=== PATIENT | male | born 1955 | race Caucasian/White ===

== ENCOUNTER → 2023-08-16 17:15 | Outpatient (REF) | payer OTHER, SELFPAY | LOC: MRI 3T 17:15 | PROVIDERS: ATTENDING PHYSICIAN Specialist; FAMILY PHYSICIAN Internal Medicine Geriatric Medicine | DX: C61 Malignant neoplasm of prostate (principal) | CPT/HCPCS: 72197; A9575 ==

== ENCOUNTER 2023-10-09 14:54 | Outpatient (RCR) | payer OTHER, SELFPAY | END 2023-10-09 23:59 | disposition home or self-care (01) | LOC: RPT 14:54 | PROVIDERS: ATTENDING PHYSICIAN Specialist; FAMILY PHYSICIAN Internal Medicine Geriatric Medicine | DX: C61 Malignant neoplasm of prostate (principal) | CPT/HCPCS: 97162; 97530 ==

== ENCOUNTER 2023-10-10 06:11 | Inpatient (IN) | payer OTHER, SELFPAY ==
[2023-10-02 08:07] VITALS: BMI 26.3
[2023-10-02 08:58] LABS: Hematocrit 38.7 % (39.0-52.0); Hemoglobin 13.6 g/dL (13.0-18.0); Mean Corp Hgb Conc. 35.1 g/dL (33.0-37.0); Mean Corpuscular Hgb 32.2 pg (27.0-31.0); Mean Corpuscular Volume 91.5 fL (80.0-94.0); Mean Platelet Volume 10.4 fL (7.4-10.4); Platelet Count 179 10^3/uL (130-400); Red Blood Cell Count 4.23 10^6/uL (4.70-6.10); Red Cell Dist. Width 12.3 % (11.5-14.5); White Blood Cell Count 5.2 10^3/uL (4.8-10.8)
[2023-10-02 09:10] LABS: Urine Albumin Negative (Neg - Trace); Urine Bilirubin Negative (Negative); Urine Character Clear (Clear); Urine Color Yellow; Urine Glucose Negative (Negative); Urine Ketone Negative (Negative); Urine Leukocyte Negative (Negative); Urine Nitrite Negative (Negative); Urine Occult Blood Negative (Negative); Urine Specific Gravity 1.015 (<1.030); Urine Urobilinogen Negative (Neg - 1+)
[2023-10-02 09:13] LABS: APTT 26.5 Sec (23.4-35.0); INR 1.05; PT 13.8 Sec (11.4-14.6)
[2023-10-02 10:14] LABS: Blood Urea Nitrogen 24 mg/dl (9-20); Calcium 9.5 mg/dl (8.4-10.2); Carbon Dioxide 25 mmol/L (22-30); Chloride 104 mmol/L (98-107); Estimated Creatinine Clearance 79 ml/min; Glucose 84 mg/dl (70-99); Potassium 4.6 mmol/L (3.5-5.1); Sodium 136 mmol/L (135-145); eGFR > 60.00
[2023-10-10] VITALS (14 sets, daily range): BP systolic 116–164; BP diastolic 65–89; BMI 26.3
[2023-10-10] MEDS: NORMOSOL-R 1000 IV (06:40)
[2023-10-10] MEDS: NEOMYCIN ENEMA 1 BOTTLE RECTAL (06:51)
--- NOTE | 2023-10-10 09:18 | W.PN.ADMIT ---
Progress Note - Admit
Progress Note - Admit
pt underwent uneventful RPP
admit for post op management
[2023-10-10] MEDS: NSS 1000 IV ×2 (10:02→21:03)
[2023-10-10 10:34] LABS: Hematocrit 38.3 % (39.0-52.0); Hemoglobin 13.4 g/dL (13.0-18.0); Mean Corpuscular Volume 91.4 fL (80.0-94.0); Mean Platelet Volume 10.3 fL (7.4-10.4); Platelet Count 168 10^3/uL (130-400); Red Blood Cell Count 4.19 10^6/uL (4.70-6.10); Red Cell Dist. Width 12.2 % (11.5-14.5); White Blood Cell Count 10.2 10^3/uL (4.8-10.8)
[2023-10-10] MEDS: DILAUDID 0.5 MG IV (10:38)
[2023-10-10 12:29] LABS: Blood Urea Nitrogen 11 mg/dl (9-20); Calcium 8.8 mg/dl (8.4-10.2); Carbon Dioxide 25 mmol/L (22-30); Chloride 105 mmol/L (98-107); Estimated Creatinine Clearance 88 ml/min; Glucose 134 mg/dl (70-99); Sodium 137 mmol/L (135-145); eGFR > 60.00
[2023-10-10] MEDS: DETROL LA 4 MG PO (12:50)
[2023-10-10] MEDS: TORADOL 15 MG IV ×2 (12:50→21:04)
[2023-10-10] MEDS: COLACE 100 MG PO (21:03)
[2023-10-11 03:00] VITALS: BP 122/60
[2023-10-11] MEDS: TORADOL 15 MG IV ×3 (04:33→20:51)
[2023-10-11 06:48] LABS: Hematocrit 33.5 % (39.0-52.0); Hemoglobin 11.8 g/dL (13.0-18.0); Mean Corp Hgb Conc. 35.2 g/dL (33.0-37.0); Mean Corpuscular Hgb 32.6 pg (27.0-31.0); Mean Corpuscular Volume 92.5 fL (80.0-94.0); Mean Platelet Volume 10.6 fL (7.4-10.4); Platelet Count 149 10^3/uL (130-400); Red Blood Cell Count 3.62 10^6/uL (4.70-6.10); Red Cell Dist. Width 12.1 % (11.5-14.5); White Blood Cell Count 9.4 10^3/uL (4.8-10.8)
[2023-10-11 07:12] LABS: Blood Urea Nitrogen 10 mg/dl (9-20); Calcium 8.7 mg/dl (8.4-10.2); Carbon Dioxide 25 mmol/L (22-30); Chloride 106 mmol/L (98-107); Estimated Creatinine Clearance 88 ml/min; Glucose 92 mg/dl (70-99); Potassium 4.7 mmol/L (3.5-5.1); Sodium 136 mmol/L (135-145); eGFR > 60.00
[2023-10-11 07:27] VITALS: BP 121/70
--- NOTE | 2023-10-11 08:06 | W.PN.URO.CBU ---
Today's Communication / Plan
-
routine post prostaectomy care
Assessment / Plan
-
s/p RPP
dressing down
UOOB
advance diet
Diagnosis
-
Date of Service: October 11, 2023
-
Patient Diagnosis:
prostate cancer
Post Op Day:
RPP 10/09
Subjective
-
pt feeling well
urine clear
minimal wound drainage
+ flatus
Objective
-
Vital Signs
Temp Pulse Resp BP Pulse Ox
98.1 F 74 18 121/70 96
10/11/23 07:27 10/11/23 07:27 10/11/23 07:27 10/11/23 07:27 10/11/23 07:27
Intake and Output
10/10/23 10/11/23 10/12/23
06:59 06:59 06:59
Intake Total 3360 / 3360
Output Total 1340 / 1340
Balance 2019 / 2020
Intake:
Oral fluids 2160 / 2160
IV fluids (Total) 1200 / 1200
normosol 200 / 200
Output:
Urine, Perez 1340 / 1340
Laboratory Results
10/11/23 05:51
10/11/23 05:51
Review of Systems
-
Constitutional: No Symptoms
Respiratory: No Symptoms
Cardiac: No Symptoms
Abdomen/GI: No Symptoms
Physical Exam
-
General - well developed, well nourished, no acute distress
Abdomen - soft, non-tender,
Genitalia - normal- perez in place
Rectal - normal
Skin - warm & dry with no rash
Neuro - AOx3, no motor deficits
Extremities - no clubbing, no cyanosis, no edema
Incision - clean, dry- dressing removed
[2023-10-11] MEDS: VITAMIN D3 (cholecalciferol) 25 MCG PO (09:15)
[2023-10-11] MEDS: DETROL LA 4 MG PO (09:15)
[2023-10-11] MEDS: COLACE 100 MG PO (09:15)
[2023-10-11] MEDS: TYLENOL 650 MG PO (09:16)
[2023-10-11] MEDS: STERILE WATER FOR INJECTION 10 ML IV (09:16)
[2023-10-11] MEDS: ROCEPHIN 1000 MG IV (09:16)
--- NOTE | 2023-10-11 11:39 | CM ---
Addendum entered by Meño Denton 10/11/23 14:24:
Patient and would like referral sent to [facility] for VN services. Referral sent via standard fax. [facility] unavailable. Sushma at [facility] notified.
Original Note:
Initial assessment completed with patient who lives with his in a 2 story carriage house with B/B on 1st floor, no steps to enter, DME in home is [facility] and [facility], patient does not use any DME, no in-home services. RELATIONS MGR patient was independent,
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 No history of Psychiatric hospitalizations. Pharmacy is [facility] on [address] in [place] and PCP is Dr. Louis Bey. Will need services for Cole and wound care. Patient
requests CM meet with this afternoon to choose HH agency.
[2023-10-11] MEDS: NSS IV (14:53)
[2023-10-11 15:33] VITALS: BP 117/58
[2023-10-11] MEDS: COLACE PO (20:40)
[2023-10-11 23:00] VITALS: BP 125/68
[2023-10-12] MEDS: TORADOL 15 MG IV (03:30)
[2023-10-12 07:55] VITALS: BP 135/70
[2023-10-12] MEDS: DETROL LA 4 MG PO (09:14)
[2023-10-12] MEDS: VITAMIN D3 (cholecalciferol) 25 MCG PO (09:16)
[2023-10-12] MEDS: STERILE WATER FOR INJECTION 10 ML IV (09:17)
[2023-10-12] MEDS: ROCEPHIN 1000 MG IV (09:17)
[2023-10-12] MEDS: COLACE PO (09:23)
[2023-10-12] MEDS: TYLENOL 650 MG PO (09:25)
--- NOTE | 2023-10-12 10:43 | W.PN.URO.CBU ---
Today's Communication / Plan
-
Discharge
Assessment / Plan
-
68M s/p RPP
dressing exchanged and mariya drain removed
UOOB
regular diet
PO pain control
Stable for discharge home today with perez in place
Diagnosis
-
Date of Service: October 12, 2023
-
Patient Diagnosis:
Prostate cancer
Post Op Day:
Patient Diagnosis:
prostate cancer
Post Op Day:
RPP 10/09
Subjective
-
feeling well with pain controlled
tolerating diet
ambulated
BM this AM
mariya drain fell out during hygiene
Objective
-
Vital Signs
Temp Pulse Resp BP Pulse Ox
96.4 F L 71 16 135/70 96
10/12/23 07:55 10/12/23 07:55 10/12/23 07:55 10/12/23 07:55 10/12/23 07:55
Intake and Output
10/11/23 10/12/23 10/13/23
06:59 06:59 06:59
Intake Total 3360 / 3360 2280 / 2280 240 / 240
Output Total 1340 / 1340 4595 / 6335 425 / 425
Balance 2020 / 2020 -4055 / -4055 -185 / -185
Intake:
Oral fluids 2160 / 2160 2280 / 2280 240 / 240
IV fluids (Total) 1200 / 1200
normosol 200 / 200
Output:
Urine, Perez 1340 / 1340 6335 / 6335 425 / 425
Laboratory Results
10/11/23 05:51
10/11/23 05:51
Physical Exam
-
General - well developed, well nourished, no acute distress
Chest - clear bilaterally
Abdomen - soft, non-tender
- perez in place, clear urine
Skin - warm & dry with no rash
Neuro - AOx3, no motor deficits
Extremities - no clubbing, no cyanosis, no edema
Incision - clean, dry
Dressing - clean, dry, intact
--- NOTE | 2023-10-12 10:45 | W.DS.TRANS ---
DC Summary - [employer]
-
Discharge Instructions:
Sleep Apnea Risk Low
Discharge Diagnosis/Procedures you had a radical perineal prostatectomy
Diet No restrictions
Activity No strenuous activity
Additional Activity no lifting over 10lbs
Driving Restrictions Not until seen by your Dr
Bathing Restrictions shower after each bowel movement
Other Services VN
Wound Care expect drainage from wound
expect some blood in urine and around catheter
Instructions:
Stand-Alone Forms:
Changes to Home Medications: No
Discharge Medications:
DC Medications w/original date entered in [employer]
cholecalciferol (vitamin D3) 25 mcg (1,000 unit) capsule (Vitamin D3) 25 mcg PO DAILY Supplement 10/08/23
sildenafil 100 mg tablet 100 mg PO DAILY PRN erectile 10/08/23
docusate sodium 100 mg capsule (Colace) 100 mg PO BID #60 caps 10/11/23
naproxen sodium 220 mg capsule (Aleve) 220 mg PO BID #30 caps 10/11/23
nitrofurantoin monohydrate/macrocrystals 100 mg capsule (Macrobid) 100 mg PO QHS #14 caps 10/11/23
tramadol 50 mg tablet 50 mg PO Q8H PRN Pain #30 tabs 10/11/23
Home Medication Changes
Pending Results: Yes (Pathology)
Total time spent discharging patient (in min): 35
--- NOTE | 2023-10-12 11:27 | CM ---
Patient has been medically cleared for discharge to home with [facility] services. [facility] FAX # [phone]. Patient has arranged for transport home.
[2023-10-12 12:35] VITALS: BP 143/81
== END 2023-10-12 12:36 | disposition home health service (06) | DRG 708 ==
LOC: 2 SOUTH 06:11
PROVIDERS: ADMITTING PHYSICIAN Specialist; FAMILY PHYSICIAN Internal Medicine Geriatric Medicine
PROC: 0VT00ZZ Resection of Prostate, Open Approach (ICD-10-PCS; 2023-10-10)
PROC: 0VT30ZZ Resection of Bilateral Seminal Vesicles, Open Approach (ICD-10-PCS; 2023-10-10)
PROC: 0TQC0ZZ Repair Bladder Neck, Open Approach (ICD-10-PCS; 2023-10-10)
DX: C61 Malignant neoplasm of prostate (principal)
CPT/HCPCS: 88305; 88309; 36415; 80048; 81003; 85027; 85610; 85730; 86850; 86900; 86901; 93005; A4648

== ENCOUNTER 2023-11-26 06:17 | Day surgery (SDC) | payer OTHER, SELFPAY ==
[2023-11-26] VITALS (7 sets, daily range): BP systolic 119–159; BP diastolic 61–81; BMI 25.7
== END 2023-11-26 10:50 | disposition home or self-care (01) ==
LOC: SDS 06:17
PROVIDERS: ATTENDING PHYSICIAN Specialist
DX: N35.919 Unspecified urethral stricture, male, unspecified site (principal); C61 Malignant neoplasm of prostate
CPT/HCPCS: 52281; 76000; J1580

== ENCOUNTER 2023-12-16 15:02 | Outpatient (RCR) | payer OTHER, SELFPAY | END 2023-12-16 23:59 | disposition home or self-care (01) | LOC: RPT 15:02 | PROVIDERS: ATTENDING PHYSICIAN Specialist; FAMILY PHYSICIAN Internal Medicine Geriatric Medicine | DX: C61 Malignant neoplasm of prostate (principal); Z73.6 Limitation of activities due to disability | CPT/HCPCS: 97110; 97164; 97530 ==

== ENCOUNTER 2023-12-30 14:54 | Outpatient (RCR) | payer OTHER, SELFPAY | END 2023-12-30 23:59 | disposition home or self-care (01) | LOC: RPT 14:54 | PROVIDERS: ATTENDING PHYSICIAN Specialist; FAMILY PHYSICIAN Internal Medicine Geriatric Medicine | DX: C61 Malignant neoplasm of prostate (principal); Z73.6 Limitation of activities due to disability | CPT/HCPCS: 97110; 97112; 97530 ==

== ENCOUNTER → 2024-03-19 14:49 | Outpatient (REF) | payer SELFPAY | LOC: HWRAD 14:49 | PROVIDERS: ATTENDING PHYSICIAN Internal Medicine Geriatric Medicine | DX: E78.2 Mixed hyperlipidemia (principal) | CPT/HCPCS: 75571 ==

== ENCOUNTER → 2024-03-31 10:08 | Outpatient (REF) | payer OTHER, SELFPAY | LOC: RCS 10:08 | PROVIDERS: ATTENDING PHYSICIAN Internal Medicine Geriatric Medicine | DX: R93.1 Abnormal findings on diagnostic imaging of heart and coronary circulation (principal) | CPT/HCPCS: 93017; 93350 ==

== ENCOUNTER → 2024-06-22 08:13 | Outpatient (REF) | payer OTHER, SELFPAY | LOC: RCS 08:13 | PROVIDERS: ATTENDING PHYSICIAN Internal Medicine; FAMILY PHYSICIAN Internal Medicine Geriatric Medicine | DX: E78.2 Mixed hyperlipidemia (principal); R93.1 Abnormal findings on diagnostic imaging of heart and coronary circulation; Z82.49 Family history of ischemic heart disease and other diseases of the circulatory system | CPT/HCPCS: 93306 ==